=== PATIENT | male | born 1995 | race Caucasian/White ===

== ENCOUNTER 2019-01-11 06:47 | Emergency (ER) | payer BC ==
[2019-01-11] MEDS ORDERED: Famotidine IV* 10 MG/ML 2 ML (20 mg) IV SLOW PU ONE (06:50)
[2019-01-11] MEDS ORDERED: NS 0.9% 1000 ML** 1,000 ML IV ONE ×2 (06:51→09:13)
[2019-01-11] MEDS ORDERED: Sucralfate SUSP 1 GM/10 ml 10 ML UDC PO ONE (06:51)
[2019-01-11] MEDS ORDERED: Ondansetron INJ* 2 MG/ML VIAL IV ONE (06:51)
--- NOTE | 2019-01-11 07:06 | ED ---
Abdominal Pain/Male - HPI Summary HPI Summary: Patient is a 23-year-old male with a history of epigastric discomfort and irritable bowel syndrome presenting to the ED with midepigastric pain which is nonradiating. He is also endorsing nausea and vomiting since this morning. He endorses about 3-4 episodes of nausea and vomiting since 5 AM. He states the epigastric pain became first and subsequently the nausea and vomiting. He denies any pain to the other 4 quadrants. History of cholecystectomy. He has had full workups to his epigastric pain including endoscopy and colonoscopy with no acute findings. He is currently on no medications. He is otherwise healthy. Patient is a nonsmoker and denies any heavy alcohol use. He denies any constipation or diarrhea. Denies any urinary symptoms or back pain. Patient is afebrile, denies any sweats or chills and vital signs are stable on arrival. - History of Current Complaint Chief Complaint: EDAbdPain Stated Complaint: ABD PAIN Time Seen by Provider: 01/11/19 06:50 Hx Obtained From: Patient Onset/Duration: Sudden Onset Timing: Constant Pain Intensity: 1 Pain Scale Used: 0-10 Numeric Location: Epigastric Radiates: No Character: Burning Aggravating Factor(s): Nothing Alleviating Factor(s): Nothing Associated Signs And Symptoms: Positive: Negative - Risk Factors Testicular Torsion: Negative Cardiac Risk Factors: Negative - Allergies/Home Medications Allergies/Adverse Reactions: Allergies Allergy/AdvReac Type Severity Reaction Status Date / Time seftin Allergy Unknown Uncoded 01/11/19 06:56 Reaction Details PMH/Surg Hx/FS Hx/Imm Hx Previously Healthy: Yes - Immunization History Hx Pertussis Vaccination: No Immunizations Up to Date: Yes Infectious Disease History: No Infectious Disease History: Denies: Traveled Outside the [place] in Last 30 Days - Social History Occupation: Employed Full-time Lives: With Family Alcohol Use: Occasionally Hx Substance Use: No Substance Use Type: Reports: None Smoking Status (MU): Never Smoked Tobacco Review of Systems Constitutional: Negative Negative: Fever, Chills, Fatigue, Skin Diaphoresis Negative: Dental Pain Negative: Palpitations, Chest Pain Negative: Shortness Of Breath, Cough Positive: Abdominal Pain, Vomiting, Nausea. Negative: Diarrhea Genitourinary: Negative Positive: no symptoms reported, see HPI Negative: Arthralgia, Myalgia All Other Systems Reviewed And Are Negative: Yes Physical Exam Triage Information Reviewed: Yes Vital Signs On Initial Exam: Initial Vitals Temp Pulse Resp BP Pulse Ox 96.5 F 72 18 132/85 98 01/11/19 06:50 01/11/19 06:50 01/11/19 06:50 01/11/19 06:50 01/11/19 06:50 Vital Signs Reviewed: Yes Appearance: Positive: Well-Appearing, Well-Nourished Skin: Positive: Warm, Skin Color Reflects Adequate Perfusion Head/Face: Positive: Normal Head/Face Inspection Eyes: Positive: EOMI, Conjunctiva Clear Neck: Positive: Supple, Nontender, No Lymphadenopathy Respiratory/Lung Sounds: Positive: Clear to Auscultation, Breath Sounds Present Cardiovascular: Positive: RRR, Pulses are Symmetrical in both Upper and Lower Extremities Neurological: Positive: Alert, Oriented to Person Place, Time, Speech Normal Psychiatric: Positive: Affect/Mood Appropriate AVPU Assessment: Alert Diagnostics - Vital Signs Vital Signs Temp Pulse Resp BP Pulse Ox 01/11/19 06:50 96.5 F 72 18 132/85 98 - Laboratory Result Diagrams: 01/11/19 07:21 01/11/19 07:21 Lab Statement: Any lab studies that have been ordered have been reviewed, and results considered in the medical decision making process. Abdominal Pain Male Course/Dx - Course Course Of Treatment: during his course of treatment, the patient's evaluated for nausea vomiting and epigastric tenderness. He is actively vomiting on arrival from EMS. He states he has a history of epigastric tenderness and subsequently had a cholecystectomy. This was a few years ago, he states he continues to have epigastric tenderness intermittently although despite an endoscopy and a colonoscopy, there are no reasons for his symptoms. He is currently not on a PPI, sucralfate or Maalox. On arrival, he is actively vomiting. During the ED course, he is given 2 L fluids, Zofran, sucralfate, Bentyl, Reglan and famotidine. He is reassessed with improvement. Labs obtained and are WNL except for transaminitis with AST and ALT elevations. He will follow-up with GI specialists in 2 weeks for a redraw. He understands return precautions and offers no complaints at this time. - Diagnoses Differential Diagnosis/HQI/PQRI: Hepatitis, Pancreatitis, Peptic Ulcer Disease Provider Diagnoses: Epigastric pain, Transaminitis Discharge - Sign-Out/Discharge Documenting (check all that apply): Patient Departure Patient Received Moderate/Deep Sedation with Procedure: No - Discharge Plan Condition: Stable Disposition: HOME Prescriptions: Dicyclomine CAP* [Bentyl CAP*] 20 mg PO TID PRN #30 cap PRN Reason: Pain Famotidine TAB* [Pepcid 20 MG TAB*] 40 mg PO DAILY #30 tab Ondansetron ODT TAB* [Zofran 4 MG Odt TAB*] 4 mg PO Q6H PRN #12 tab.odt MDD 4 PRN Reason: Nausea Patient Education Materials: Irritable Bowel Syndrome (ED), Epigastric Pain (ED ) Referrals: Juan Diego Pedersen DO [Doctor of Osteopathy] - Tonya Dalton NP [Primary Care Provider] - Additional Instructions: Take [id number] Maalox up to 3 times daily for any epigastric discomfort Omeprazole 40 mg once daily 30 days Zofran up to 3 times daily as needed for nausea Dicyclomine 20 mg up to 3 times daily for irritable bowel syndrome and abdominal spasms Please follow-up with GI specialist within the next few weeks If any symptoms worsen or continue, return to the ED Please follow-up with your elevated liver enzymes as discussed - Billing Disposition and Condition Condition: STABLE Disposition: Home
[2019-01-11 07:38] LABS: ABS Basophils 0 10^3/ul (0-0.2); ABS Eosinophils 0 10^3/ul (0-0.6); ABS Lymphocytes 0.4 10^3/ul (1.0-4.8); ABS Monocytes 0.5 10^3/ul (0-0.8); ABS Neutrophils 4.1 10^3/ul (1.5-7.7); ABS Nucleated RBC 0 10^3/ul; Eosinophil % 0.9 %; Hematocrit 42 % (36-46); Hemoglobin 14.4 g/dL (14.0-18.0); Lymphocyte % 7.5 %; Mean Corpuscular HGB Conc 34 g/dL (31-36); Mean Corpuscular Hemoglobin 30 pg (27-31); Mean Corpuscular Volume 87 fL (80-94); Mean Platelet Volume 8.9 fL (7.4-10.4); Nucleated Red Blood Cells % 0.1; Platelet Count 145 10^3/uL (150-450); Red Blood Count 4.87 10^6 /uL (4.18-5.48); Red Cell Distribution Width 14 % (10.5-15); White Blood Count 5.1 10^3/uL (3.5-10.8)
[2019-01-11 07:58] LABS: Albumin 4.2 g/dL (3.2-5.2); Albumin/Globulin Ratio 2.1 (1-3); BUN/Creatinine Ratio 16.9 (8-20); C Reactive Protein 5.28 mg/L (<8.01); Calcium 9.7 mg/dL (8.6-10.3); EGFR African American 148.9 (>60); EGFR Non-African American 123.1 (>60); Magnesium 1.9 mg/dL (1.9-2.7); Potassium 4.3 mmol/L (3.5-5.0); Total Protein 6.2 g/dL (6.4-8.9)
[2019-01-11] MEDS ORDERED: Morphine 4 MG/ML VIAL (1 ml) 4 MG/ML VIAL IV ONE (08:42)
[2019-01-11] MEDS ORDERED: Metoclopramide IV* 5 MG/ML 2 ML VIAL IV SLOW PU ONE (08:43)
[2019-01-11] MEDS ORDERED: Dicyclomine CAP* 10 MG PO ONE (09:09)
[2019-01-11 10:27] LABS: Influenza A Molecular NEGATIVE (Negative); Influenza B Molecular NEGATIVE (Negative)
[2019-01-11 11:25] VITALS: BP 132/63
[2019-01-11 12:50] LABS: Hepatitis B Surface Antigen Nonreactive (Nonreactive)
[2019-01-11 13:16] LABS: Hepatitis C Antibody Nonreactive (Nonreactive)
== END 2019-01-11 11:24 | disposition home or self-care (01) ==
LOC: ED 06:47
DX: R10.13 Epigastric pain (principal); R74.0 Nonspecific elevation of levels of transaminase and lactic acid dehydrogenase [LDH]
CPT/HCPCS: 36415; 76705; 80053; 80074; 82150; 83605; 83690; 83735; 84484; 85025; 86140; 96361; 96374; 96375; 99283; A9270-GY; J2765